=== PATIENT | male | born 1960 | race Caucasian/White ===

== ENCOUNTER 2022-07-18 14:53 | Outpatient (REF) | payer OTHER, SELFPAY ==
--- NOTE | ~2022-07-18 | XR_ITS ---
EXAMINATION: XR CHEST CLINICAL INFORMATION: Cough COMPARISON: 11/14/2017 TECHNIQUE: 2 views of the chest were obtained. FINDINGS: No significant abnormality is noted involving the heart, lungs, mediastinum, bony thorax or soft tissues. XR/XR chest 2V IMPRESSION: Unremarkable examination.
== END 2022-07-18 14:54 | disposition home or self-care (01) ==
LOC: HO.XRAY 14:53
PROVIDERS: PCP Internal Medicine; Visit Provider Internal Medicine
DX: R05.9 Cough, unspecified (principal)
CPT/HCPCS: 71046

== ENCOUNTER 2022-07-20 12:04 | Outpatient (REF) | payer OTHER, SELFPAY ==
[2022-07-20 12:19] LABS: MANUAL DIFF FLAG NO
[2022-07-20 13:10] LABS: Basophils Percent Auto 0.7 % (0-2); Eosinophils Absolute Auto 0.1 X10*3/uL (0.0-0.4); Eosinophils Percent Auto 3.1 % (0-4); Hematocrit 42.1 % (42.0-52.0); Hemoglobin 14.1 g/dl (14.0-18.0); Imm Gran Abs Auto 0.01 X10*3/uL (0.00-0.03); Imm Gran Pct Auto 0.2 % (0.0-0.4); Lymphocytes Absolute Auto 0.8 X10*3/uL (1.2-4.9); Lymphocytes Percent Auto 18.3 % (20-40); Mean Corpuscular HGB Conc 33.5 g/dl (31.0-36.0); Mean Corpuscular Hemoglobin 32.7 pg (27.0-33.0); Mean Corpuscular Volume 97.7 fL (80.0-98.0); Mean Platelet Volume 10.9 fL (9.4-12.4); Monocytes Absolute Auto 0.5 X10*3/uL (0.1-1.2); Neutrophils Absolute Auto 2.8 x10*3/uL (2.0-8.3); Neutrophils Percent Auto 66.7 % (45-73); Platelet Count 213 X10*3/uL (160-400); Red Blood Count 4.31 X10*6/uL (4.60-5.80); Red Cell Distribution Width 12.8 % (11.0-16.0); White Blood Count 4.2 X10*3/uL (4.8-10.8)
[2022-07-20 14:13] LABS: Prostate Specific Antigen Scr 0.62 ng/mL (<0.05-4.0)
[2022-07-20 14:29] LABS: Alanine Aminotransferase 30 U/L (0-40); Albumin Level 4.5 g/dL (3.5-5.0); Alkaline Phosphatase 61 U/L (39-117); Anion Gap 19 (12-20); Aspartate Amino Transferase 20 U/L (5-37); Bilirubin Total 0.8 mg/dL (0.0-1.0); Blood Urea Nitrogen 19 mg/dL (9-16); Calcium 10.3 mg/dL (8.4-10.2); Carbon Dioxide 27 mmol/L (22-29); Chloride 105 mmol/L (96-108); Cholesterol 178 mg/dL; Estimated Glomerular Filt Rate > 60; Glucose Fasting 114 mg/dL (60-99); HDL Cholesterol 38 mg/dL; LDL Cholesterol Calculated 121 mg/dl; Potassium 5.7 mmol/L (3.3-5.1); Sodium 145 mmol/L (135-145); Total Protein 6.6 g/dL (6.5-8.0); Triglycerides 99 mg/dL
== END 2022-07-20 12:05 | disposition home or self-care (01) ==
LOC: HO.LAB 12:04
PROVIDERS: PCP Internal Medicine; Visit Provider Internal Medicine
DX: Z00.00 Encounter for general adult medical examination without abnormal findings (principal); R53.83 Other fatigue; Z12.5 Encounter for screening for malignant neoplasm of prostate
CPT/HCPCS: 36415; 80053; 80061; 84153; 85025

== ENCOUNTER 2022-07-28 09:43 | Outpatient (REF) | payer OTHER, SELFPAY ==
--- NOTE | ~2022-07-28 | XR_ITS ---
Examination: Left hip and right knee. CLINICAL INDICATION: Painful joints. COMPARISON: None TECHNIQUE: Left hip 2 views and right knee 4 views. FINDINGS: LEFT HIP: AP and frog-leg views left hip reveal no visible acute fracture, dislocation or bony abnormality. The soft tissues are normal. RIGHT KNEE: There is loss of medial and patellofemoral compartment joint space. The lateral compartment joint space is normal. There is mild suprapatellar spurring. No visible acute fracture or dislocation. There is no subluxation. XR/XR knee RT 4V IMPRESSION: Unremarkable left rib exam. Mild degenerative changes medial and patellofemoral compartment. No visible acute fracture, dislocation or bony abnormality.
--- NOTE | ~2022-07-28 | XR_ITS ---
Examination: Left hip and right knee. CLINICAL INDICATION: Painful joints. COMPARISON: None TECHNIQUE: Left hip 2 views and right knee 4 views. FINDINGS: LEFT HIP: AP and frog-leg views left hip reveal no visible acute fracture, dislocation or bony abnormality. The soft tissues are normal. RIGHT KNEE: There is loss of medial and patellofemoral compartment joint space. The lateral compartment joint space is normal. There is mild suprapatellar spurring. No visible acute fracture or dislocation. There is no subluxation. XR/XR hip LT min 2V IMPRESSION: Unremarkable left rib exam. Mild degenerative changes medial and patellofemoral compartment. No visible acute fracture, dislocation or bony abnormality.
== END 2022-07-28 09:44 | disposition home or self-care (01) ==
LOC: HO.XRAY 09:43
PROVIDERS: PCP Internal Medicine; Visit Provider Internal Medicine
DX: M25.552 Pain in left hip (principal); M25.561 Pain in right knee
CPT/HCPCS: 73502; 73564

== ENCOUNTER 2022-10-17 11:46 | Outpatient (REF) | payer OTHER, SELFPAY ==
--- NOTE | ~2022-10-17 | XR_ITS ---
EXAMINATION: XR RIBS, RIGHT CLINICAL INFORMATION: Right-sided rib pain, bruising, status post fall COMPARISON: Chest 07/18/2022 TECHNIQUE: PA chest and 3 views of the right ribs were obtained. FINDINGS: Lungs are clear. No consolidation, pneumothorax, or pleural effusion. The cardiomediastinal silhouette and pulmonary vasculature are normal. Osseous structures are unremarkable. Ribs are intact. No fractures are identified. XR/XR ribs RT min 3V w [id number] IMPRESSION: No displaced right rib fracture.
== END 2022-10-17 11:47 | disposition home or self-care (01) ==
LOC: HO.HMGCX 11:46
PROVIDERS: PCP Internal Medicine; Visit Provider Internal Medicine
DX: R07.81 Pleurodynia (principal); Z91.81 History of falling
CPT/HCPCS: 71101

== ENCOUNTER 2023-08-15 12:53 | Outpatient (REF) | payer OTHER, SELFPAY ==
--- NOTE | ~2023-08-15 | XR_ITS ---
EXAMINATION: XR RIBS, RIGHT, WITH PA CHEST CLINICAL INFORMATION: Hematoma. COMPARISON: Radiographs dated 10/17/2022. TECHNIQUE: 5 views of the right ribs were obtained, together with a PA view of the chest. FINDINGS: Lungs are clear. No consolidation, pneumothorax, or pleural effusion. The cardiomediastinal silhouette and pulmonary vasculature are normal. A healing fractures noted of the anterior left 11th rib. There is adjacent periosteal reaction. There are right upper quadrant surgical clips. XR/XR ribs RT min 3V w [id number] IMPRESSION: A nondisplaced, healing fracture is noted of the anterior margin of the right 11th rib.
== END 2023-08-15 12:54 | disposition home or self-care (01) ==
LOC: HO.HMGCX 12:53
PROVIDERS: PCP Internal Medicine; Visit Provider Internal Medicine
DX: S22.41XA Multiple fractures of ribs, right side, initial encounter for closed fracture (principal)
CPT/HCPCS: 71101

== ENCOUNTER 2023-09-06 12:06 | Outpatient (REF) | payer OTHER, SELFPAY ==
--- NOTE | ~2023-09-06 | XR_ITS ---
EXAMINATION: XR HIP, LEFT CLINICAL INFORMATION: Left hip pain. COMPARISON: 07/28/2022 TECHNIQUE: 2 views of the left hip. FINDINGS: Alignment is anatomic. Mild narrowing of the left hip joint space with mild hypertrophic change. XR/XR hip LT min 2V IMPRESSION: Mild degenerative changes left hip. MRI recommended for further evaluation if there is clinical concern for fracture or other underlying pathology.
== END 2023-09-06 12:07 | disposition home or self-care (01) ==
LOC: HO.HMGCX 12:06
PROVIDERS: PCP Internal Medicine; Visit Provider Internal Medicine
DX: M25.552 Pain in left hip (principal); M19.90 Unspecified osteoarthritis, unspecified site
CPT/HCPCS: 73502